=== PATIENT | female | born 1960 | race Caucasian/White ===

== ENCOUNTER → 2017-02-13 | Outpatient (CLI) | payer OTHER ==
[~2017-02-13] MED LIST: CELEXA20 MG PO; PROTONIX 40 MG40 M1 PO; TOPROL XL25 MG PO
== END ==
LOC: CT 02-12 11:00 → KOH-I 09:47 → CT 11:00
DX: R16.1 Splenomegaly, not elsewhere classified (principal); D61.818 Other pancytopenia; R91.8 Other nonspecific abnormal finding of lung field
CPT/HCPCS: 71260; 74177; Q9962

== ENCOUNTER → 2017-03-17 | Day surgery (SDC) | payer OTHER | END | disposition home or self-care (01) | LOC: OR 08:05 | PROVIDERS: Internal Medicine Gastroenterology | PROC: 0DB98ZZ Excision of Duodenum, Via Natural or Artificial Opening Endoscopic (ICD-10-PCS; principal; 2017-03-17 13:15) | DX: K31.89 Other diseases of stomach and duodenum (principal); I10 Essential (primary) hypertension; F17.210 Nicotine dependence, cigarettes, uncomplicated; Z88.1 Allergy status to other antibiotic agents; Z88.5 Allergy status to narcotic agent; Z79.899 Other long term (current) drug therapy; Z98.51 Tubal ligation status | CPT/HCPCS: 36415; 80076; 82103; 82728; 83540; 83550; 86039; 86255; J2250; J3010; J7030 ==

== ENCOUNTER → 2021-02-07 | Day surgery (SDC) | payer MEDICARE, OTHER ==
[~2021-02-07] MED LIST changes: +BUSPAR 10MG10 MG PO; +CITALOPRAM HBR40 MG PO; +CLOBAZAM10 MG PO; +FAMOTIDINE20 MG PO; +LAMOTRIGINE100 MG PO; +LEVOCETIRIZINE D5 MG PO; +LOPRESSOR 25 MG25 MG PO; +TRAMADOL HCL50 MG PO; +VITAMIN D21250 MCG PO
== END | disposition home or self-care (01) ==
LOC: OR 06:08
DX: K63.5 Polyp of colon (principal); K62.1 Rectal polyp; K64.0 First degree hemorrhoids; I10 Essential (primary) hypertension; G40.909 Epilepsy, unspecified, not intractable, without status epilepticus; J44.9 Chronic obstructive pulmonary disease, unspecified; F17.210 Nicotine dependence, cigarettes, uncomplicated; K21.9 Gastro-esophageal reflux disease without esophagitis; F41.9 Anxiety disorder, unspecified; K74.60 Unspecified cirrhosis of liver; E66.9 Obesity, unspecified; Z86.010 Personal history of colon polyps; Z68.33 Body mass index [BMI] 33.0-33.9, adult; Z88.1 Allergy status to other antibiotic agents; Z88.2 Allergy status to sulfonamides; Z88.5 Allergy status to narcotic agent; Z79.899 Other long term (current) drug therapy
CPT/HCPCS: J2001; J2704; J7040

== ENCOUNTER → 2021-05-30 | Outpatient (CLI) | payer MEDICARE, OTHER | LOC: HEART 5 05-28 15:30 | DX: R07.9 Chest pain, unspecified (principal); R06.02 Shortness of breath; R00.2 Palpitations; I08.3 Combined rheumatic disorders of mitral, aortic and tricuspid valves | CPT/HCPCS: 78452; 93306; A9502; J2785 ==

== ENCOUNTER → 2022-01-08 | Outpatient (CLI) | payer MEDICARE, OTHER | LOC: MRI 08:30 | DX: R42 Dizziness and giddiness (principal) | CPT/HCPCS: 70544; 93880 ==